=== PATIENT | male | born 1950 | race Caucasian/White ===

== ENCOUNTER 2018-08-23 13:25 | Inpatient (IN) | payer MEDICAID, OTHER ==
[~2018-08-23] VITALS: Ht 177.8 cm; Wt 64.0 kg
[~2018-08-23 13:25] MED LIST: BACTDSB PO; DOCU250C91 PO; GABA-531 PO; GABA-533 PO; MULT-1203 PO; PARO10TA71 PO; PARO10TA89 PO; QUET200T PO; QUET200T29 PO
[2018-08-23 15:19] LABS: GLUCOSE,POINT OF CARE 117 MG/DL (70-110)
[2018-08-23 15:39] LABS: BASOPHILS % (AUTO) 1.1 % (0.0-2.0); HEMATOCRIT 43.3 % (41-53); HEMOGLOBIN 14.4 g/dL (13.5-17.5); LYMPHOCYTES # (AUTO) 1.9 K/uL (1.0-4.8); LYMPHOCYTES % (AUTO) 37.3 % (22.0-44.0); MEAN CORPUSCULAR HEMOGLOBIN 32.6 pg (26.0-34.0); MEAN CORPUSCULAR HGB CONC 33.3 G/dL (31.0-37.0); MEAN CORPUSCULAR VOLUME 98 fL (80-100); MONOCYTES # (AUTO) 0.4 K/uL (0.1-1.0); NEUTROPHILS # (AUTO) 2.3 K/uL (1.8-7.7); NEUTROPHILS % (AUTO) 43.6 % (40.0-70.0); PLATELET COUNT (AUTO) 370 K/uL (150-450); RED BLOOD CELL COUNT(AUTO) 4.43 MIL/uL (4.50-5.90); RED CELL DISTRIBUTION WIDTH 14.7 % (11.5-14.5)
[2018-08-23] MEDS ORDERED: HALOPERIDOL 5 MG TABLET PO ONE (15:45)
[2018-08-23 15:52] LABS: ANION GAP 8 mmol/L (8-16); CALCIUM, TOTAL 8.8 mg/dL (8.8-10.5); CARBON DIOXIDE 31 mmol/L (22-29); CHLORIDE 104 mmol/L (98-107); GLOMERULAR FILTR. RATE CALC > 60 mL/min (>60); GLUCOSE,RANDOM 118 mg/dL (70-110); POTASSIUM 4.5 mmol/L (3.5-5.1); SODIUM SERUM 143 mmol/L (136-145); UREA NITROGEN, BLOOD 14 mg/dL (7-18)
[2018-08-23 15:58] LABS: ALANINE AMINOTRANSFERASE 23 U/L (12-78); ALBUMIN 3.8 g/dL (3.4-5.0); ALKALINE PHOSPHATASE 111 U/L (46-116); ASPARTATE AMINOTRANSFERASE 18 U/L (15-37); BILIRUBIN,TOTAL 0.2 mg/dL (0.1-1.0); TOTAL PROTEIN, SERUM 8.2 g/dL (6.4-8.2)
[2018-08-23] MEDS ORDERED: ZOLPIDEM TARTRATE 10 MG TABLET PO PRN (16:15)
[2018-08-23 16:47] LABS: AMPHET/METH SCREEN,URINE NEGATIVE (NEGATIVE); BARBITURATE SCREEN, URINE NEGATIVE (NEGATIVE); BENZODIAZEPINES SCREEN,URINE NEGATIVE (NEGATIVE); CANNABINOID SCREEN,URINE POSITIVE (NEGATIVE); COCAINE SCREEN,URINE NEGATIVE (NEGATIVE); METHADONE SCREEN, URINE NEGATIVE (NEGATIVE); OPIATE SCREEN,URINE NEGATIVE (NEGATIVE); PHENCYCLIDINE SCREEN,URINE NEGATIVE (NEGATIVE)
[2018-08-23] MEDS: LORazepam 2 MG TABLET PO PRN (18:53)
[2018-08-23] MEDS ORDERED: LORazepam 2 MG TABLET PO ONE (19:00)
[2018-08-24 00:03] VITALS: BP 131/84
[2018-08-24] MEDS: LORazepam 2 MG TABLET PO PRN ×3 (00:20→14:14)
[2018-08-24] MEDS ORDERED: PNEUMOCOCCAL VACCINE POLYVALENT 0.5 ML VIAL [PPSV23] IM ONE (03:45)
[2018-08-24 08:05] VITALS: BP 140/95
[2018-08-24] MEDS: HALOPERIDOL 5 MG TABLET PO PRN ×2 (09:08→14:14)
[2018-08-24] MEDS: GABAPENTIN 400 MG CAPSULE PO SCH ×3 (13:13→20:30)
[2018-08-24 17:59] VITALS: BP 119/76
[2018-08-24] MEDS: QUEtiapine FUMARATE 200 MG TABLET PO SCH (20:29)
[2018-08-24] MEDS: PARoxetine HCL 10 MG TABLET PO SCH (20:30)
[2018-08-25 00:10] VITALS: BP 89/52
[2018-08-25 00:15] VITALS: BP 89/52
[2018-08-25 00:25] VITALS: BP 106/56
[2018-08-25 10:16] VITALS: BP 118/78
[2018-08-25] MEDS: GABAPENTIN 400 MG CAPSULE PO SCH ×4 (10:35→20:31)
[2018-08-25] MEDS: QUEtiapine FUMARATE 200 MG TABLET PO SCH (20:31)
[2018-08-25] MEDS: PARoxetine HCL 10 MG TABLET PO SCH (20:31)
[2018-08-25 21:38] VITALS: BP 121/79
== END 2018-08-25 22:50 | disposition home or self-care (01) | DRG 753 ==
LOC: EMS 13:25 → 3EI 19:00
PROVIDERS: ADMIT Psychiatry & Neurology Psychiatry; ATTEND Psychiatry & Neurology Psychiatry
DX: F31.9 Bipolar disorder, unspecified (principal); R45.851 Suicidal ideations; F22 Delusional disorders; Y90.8 Blood alcohol level of 240 mg/100 ml or more; F12.90 Cannabis use, unspecified, uncomplicated; F10.129 Alcohol abuse with intoxication, unspecified; E11.9 Type 2 diabetes mellitus without complications; Z79.899 Other long term (current) drug therapy
CPT/HCPCS: 70450; 83036; G0480

== ENCOUNTER 2020-01-10 22:57 | Emergency (ER) | payer MEDICAID ==
[~2020-01-10] VITALS: Ht 165.1 cm; Wt 6.4 kg
[~2020-01-10 22:57] MED LIST changes: -BACTDSB PO; -DOCU250C91 PO; -GABA-533 PO; -MULT-1203 PO; -PARO10TA71 PO; -QUET200T29 PO
[2020-01-10] MEDS ORDERED: PROZ10 PO (23:06)
[2020-01-10 23:28] LABS: BASOPHILS % (AUTO) 0.9 % (0.0-2.0); EOSINOPHILS % (AUTO) 5.8 % (1.0-6.0); HEMATOCRIT 36.8 % (41-53); HEMOGLOBIN 12.5 g/dL (13.5-17.5); LYMPHOCYTES # (AUTO) 1.7 K/uL (1.0-4.8); LYMPHOCYTES % (AUTO) 33.3 % (22.0-44.0); MEAN CORPUSCULAR HEMOGLOBIN 33.1 pg (26.0-34.0); MEAN CORPUSCULAR VOLUME 97 fL (80-100); MONOCYTES # (AUTO) 0.7 K/uL (0.1-1.0); MONOCYTES % (AUTO) 13.4 % (2.0-9.0); NEUTROPHILS # (AUTO) 2.4 K/uL (1.8-7.7); NEUTROPHILS % (AUTO) 46.6 % (40.0-70.0); PLATELET COUNT (AUTO) 309 K/uL (150-450); RED BLOOD CELL COUNT(AUTO) 3.78 MIL/uL (4.50-5.90); RED CELL DISTRIBUTION WIDTH 15.7 % (11.5-14.5)
[2020-01-10 23:36] LABS: ANION GAP 9 mmol/L (8-16); CALCIUM, TOTAL 8.5 mg/dL (8.8-10.5); CARBON DIOXIDE 29 mmol/L (22-29); CHLORIDE 104 mmol/L (98-107); CREATININE 0.85 mg/dL (0.60-1.30); GLOMERULAR FILTR. RATE CALC > 60 mL/min (>60); GLUCOSE,RANDOM 155 mg/dL (70-110); SODIUM SERUM 142 mmol/L (136-145); UREA NITROGEN, BLOOD 9 mg/dL (7-18)
[2020-01-10 23:42] LABS: ALANINE AMINOTRANSFERASE 28 U/L (12-78); ALBUMIN 3.1 g/dL (3.4-5.0); ALKALINE PHOSPHATASE 90 U/L (46-116); ASPARTATE AMINOTRANSFERASE 27 U/L (15-37); BILIRUBIN,TOTAL 0.3 mg/dL (0.1-1.0); TOTAL PROTEIN, SERUM 6.7 g/dL (6.4-8.2)
[2020-01-11 03:13] LABS: AMPHET/METH SCREEN,URINE NEGATIVE (NEGATIVE); BARBITURATE SCREEN, URINE POSITIVE (NEGATIVE); BENZODIAZEPINES SCREEN,URINE POSITIVE (NEGATIVE); CANNABINOID SCREEN,URINE POSITIVE (NEGATIVE); COCAINE SCREEN,URINE NEGATIVE (NEGATIVE); METHADONE SCREEN, URINE NEGATIVE (NEGATIVE); OPIATE SCREEN,URINE NEGATIVE (NEGATIVE)
[2020-01-11 03:22] LABS: PHENCYCLIDINE SCREEN,URINE NEGATIVE (NEGATIVE)
[2020-01-11 04:30] VITALS: BP 112/81
== END 2020-01-11 05:10 | disposition home or self-care (01) ==
LOC: EMS 22:57
DX: S00.11XA Contusion of right eyelid and periocular area, initial encounter (principal); F31.9 Bipolar disorder, unspecified; F10.129 Alcohol abuse with intoxication, unspecified; F19.10 Other psychoactive substance abuse, uncomplicated; R06.02 Shortness of breath; R07.9 Chest pain, unspecified; F41.9 Anxiety disorder, unspecified; E11.9 Type 2 diabetes mellitus without complications; Z86.73 Personal history of transient ischemic attack (TIA), and cerebral infarction without residual deficits; W19.XXXA Unspecified fall, initial encounter; Y93.89 Activity, other specified; Y92.89 Other specified places as the place of occurrence of the external cause; Y99.8 Other external cause status; Y90.6 Blood alcohol level of 120-199 mg/100 ml
CPT/HCPCS: 36415; 70450; 71045; 72125; 80053; 80307; 82962; 84484; 85025; 93005; 99285; G0480

== ENCOUNTER 2020-01-26 05:45 | Emergency (ER) | payer MEDICAID ==
[~2020-01-26] VITALS: Ht 165.1 cm; Wt 72.7 kg
[~2020-01-26 05:45] MED LIST changes: -GABA-531 PO; -PARO10TA89 PO; +PROZ10 PO; -QUET200T PO
[2020-01-26] MEDS ORDERED: METF-960 PO (05:59)
[2020-01-26 06:16] LABS: BASOPHILS % (AUTO) 0.9 % (0.0-2.0); EOSINOPHILS % (AUTO) 2.3 % (1.0-6.0); HEMATOCRIT 39.8 % (41-53); HEMOGLOBIN 13.3 g/dL (13.5-17.5); LYMPHOCYTES # (AUTO) 1.2 K/uL (1.0-4.8); MEAN CORPUSCULAR HEMOGLOBIN 32.7 pg (26.0-34.0); MEAN CORPUSCULAR HGB CONC 33.4 G/dL (31.0-37.0); MEAN CORPUSCULAR VOLUME 98 fL (80-100); MONOCYTES # (AUTO) 1.1 K/uL (0.1-1.0); MONOCYTES % (AUTO) 12.8 % (2.0-9.0); NEUTROPHILS # (AUTO) 6.4 K/uL (1.8-7.7); PLATELET COUNT (AUTO) 367 K/uL (150-450); RED BLOOD CELL COUNT(AUTO) 4.07 MIL/uL (4.50-5.90); RED CELL DISTRIBUTION WIDTH 15.6 % (11.5-14.5)
[2020-01-26 06:28] LABS: ANION GAP 9 mmol/L (8-16); CALCIUM, TOTAL 8.8 mg/dL (8.8-10.5); CARBON DIOXIDE 26 mmol/L (22-29); CHLORIDE 100 mmol/L (98-107); CREATININE 0.78 mg/dL (0.60-1.30); GLOMERULAR FILTR. RATE CALC > 60 mL/min (>60); GLUCOSE,RANDOM 151 mg/dL (70-110); POTASSIUM 3.7 mmol/L (3.5-5.1); SODIUM SERUM 135 mmol/L (136-145); UREA NITROGEN, BLOOD 8 mg/dL (7-18)
[2020-01-26 06:34] LABS: ALANINE AMINOTRANSFERASE 23 U/L (12-78); ALBUMIN 3.7 g/dL (3.4-5.0); ALKALINE PHOSPHATASE 147 U/L (46-116); ASPARTATE AMINOTRANSFERASE 22 U/L (15-37); BILIRUBIN,TOTAL 0.2 mg/dL (0.1-1.0); TOTAL PROTEIN, SERUM 7.9 g/dL (6.4-8.2)
[2020-01-26 08:44] LABS: AMPHET/METH SCREEN,URINE NEGATIVE (NEGATIVE); BARBITURATE SCREEN, URINE POSITIVE (NEGATIVE); BENZODIAZEPINES SCREEN,URINE POSITIVE (NEGATIVE); CANNABINOID SCREEN,URINE POSITIVE (NEGATIVE); COCAINE SCREEN,URINE NEGATIVE (NEGATIVE); METHADONE SCREEN, URINE NEGATIVE (NEGATIVE); OPIATE SCREEN,URINE NEGATIVE (NEGATIVE)
[2020-01-26 08:52] LABS: PHENCYCLIDINE SCREEN,URINE NEGATIVE (NEGATIVE)
[2020-01-26 09:00] VITALS: BP 125/86
== END 2020-01-26 09:23 | disposition home or self-care (01) ==
LOC: EMS 05:45
DX: S61.512A Laceration without foreign body of left wrist, initial encounter (principal); S61.511A Laceration without foreign body of right wrist, initial encounter; R45.851 Suicidal ideations; F10.10 Alcohol abuse, uncomplicated; F41.9 Anxiety disorder, unspecified; E11.9 Type 2 diabetes mellitus without complications; F12.90 Cannabis use, unspecified, uncomplicated; Z86.73 Personal history of transient ischemic attack (TIA), and cerebral infarction without residual deficits; Z90.89 Acquired absence of other organs; Z59.0 Homelessness; Z79.84 Long term (current) use of oral hypoglycemic drugs; X78.0XXA Intentional self-harm by sharp glass, initial encounter; Y93.89 Activity, other specified; Y92.89 Other specified places as the place of occurrence of the external cause; Y99.8 Other external cause status; Y90.8 Blood alcohol level of 240 mg/100 ml or more
CPT/HCPCS: 36415; 80053; 80307; 85025; 99285; G0480

== ENCOUNTER 2020-02-04 09:32 | Inpatient (IN) | payer MEDICAID ==
[~2020-02-04] VITALS: Ht 165.1 cm; Wt 72.5 kg
[~2020-02-04 09:32] MED LIST changes: +METF-960 PO
[2020-02-04 10:40] LABS: EOSINOPHILS % (AUTO) 5.2 % (1.0-6.0); HEMATOCRIT 41.8 % (41-53); HEMOGLOBIN 13.8 g/dL (13.5-17.5); LYMPHOCYTES # (AUTO) 1.4 K/uL (1.0-4.8); LYMPHOCYTES % (AUTO) 23.9 % (22.0-44.0); MEAN CORPUSCULAR HEMOGLOBIN 32.6 pg (26.0-34.0); MEAN CORPUSCULAR VOLUME 99 fL (80-100); MONOCYTES # (AUTO) 0.5 K/uL (0.1-1.0); MONOCYTES % (AUTO) 9.4 % (2.0-9.0); NEUTROPHILS # (AUTO) 3.5 K/uL (1.8-7.7); NEUTROPHILS % (AUTO) 60.5 % (40.0-70.0); PLATELET COUNT (AUTO) 270 K/uL (150-450); RED BLOOD CELL COUNT(AUTO) 4.24 MIL/uL (4.50-5.90)
[2020-02-04 10:51] LABS: ANION GAP 11 mmol/L (8-16); CALCIUM, TOTAL 9.2 mg/dL (8.8-10.5); CARBON DIOXIDE 22 mmol/L (22-29); CHLORIDE 105 mmol/L (98-107); CREATININE 0.63 mg/dL (0.60-1.30); GLOMERULAR FILTR. RATE CALC > 60 mL/min (>60); GLUCOSE,RANDOM 130 mg/dL (70-110); POTASSIUM 3.8 mmol/L (3.5-5.1); SODIUM SERUM 138 mmol/L (136-145); UREA NITROGEN, BLOOD 14 mg/dL (7-18)
[2020-02-04 10:57] LABS: ALANINE AMINOTRANSFERASE 20 U/L (12-78); ALBUMIN 3.5 g/dL (3.4-5.0); ALKALINE PHOSPHATASE 116 U/L (46-116); ASPARTATE AMINOTRANSFERASE 12 U/L (15-37); BILIRUBIN,TOTAL 0.1 mg/dL (0.1-1.0)
[2020-02-04] MEDS ORDERED: CEPHALEXIN MONOHYDRATE 500 MG CAPSULE PO ONE (14:30)
[2020-02-04] MEDS ORDERED: LORazepam 1 MG TABLET PO ONE (14:30)
[2020-02-04] MEDS ORDERED: DiphenhydrAMINE HCL 50 MG/ML VIAL IM ONE (14:30)
[2020-02-04] MEDS ORDERED: OLANZapine 5 MG RAPDIS TABLET PO PRN (14:45)
[2020-02-04] MEDS ORDERED: DIAZEPAM 10 MG TABLET PO PRN (14:45)
[2020-02-04] MEDS ORDERED: LOPERAMIDE HCL 2 MG CAPSULE PO PRN (14:45)
[2020-02-04] MEDS ORDERED: HydrOXYzine PAMOATE 50 MG CAPSULE PO PRN (14:45)
[2020-02-04] MEDS ORDERED: CYANOCOBALAMIN 1,000 MCG/ML VIAL IM ONE (14:45)
[2020-02-04] MEDS ORDERED: TUBERCULIN, PURIFIED PROTEIN DERIVATIVE 5 TU/0.1 ML SYRINGE ID ONE (14:45)
[2020-02-04] MEDS ORDERED: PROMETHAZINE HCL 25 MG TABLET PO PRN (14:45)
[2020-02-04] MEDS ORDERED: MAGNESIUM HYDROXIDE SUSPENSION 30 ML UDCUP PO PRN (14:45)
[2020-02-04] MEDS ORDERED: ACETAMINOPHEN 325 MG TABLET PO PRN (14:45)
[2020-02-04] MEDS ORDERED: GuaiFENesin/D-METHORPHAN [SUGAR-FREE] 200-20MG/10 ML SYRUP UDCUP PO PRN (14:45)
[2020-02-04] MEDS ORDERED: MAG HYDROX/AL HYDROX/SIMETH ES 30 ML SUSPENSION UDCUP PO PRN (14:45)
[2020-02-04 15:28] LABS: AMPHET/METH SCREEN,URINE NEGATIVE (NEGATIVE); BARBITURATE SCREEN, URINE NEGATIVE (NEGATIVE); BENZODIAZEPINES SCREEN,URINE POSITIVE (NEGATIVE); CANNABINOID SCREEN,URINE NEGATIVE (NEGATIVE); COCAINE SCREEN,URINE NEGATIVE (NEGATIVE); METHADONE SCREEN, URINE NEGATIVE (NEGATIVE); OPIATE SCREEN,URINE NEGATIVE (NEGATIVE); PHENCYCLIDINE SCREEN,URINE NEGATIVE (NEGATIVE)
[2020-02-04 19:45] VITALS: BP 114/77
[2020-02-04 20:19] LABS: GLUCOMETER DEV NAME(LOC) BV2S.; GLUCOSE,POINT OF CARE 143 MG/DL (70-110)
[2020-02-04 20:45] VITALS: BP 108/77
[2020-02-04] MEDS: OLANZapine 5 MG RAPDIS TABLET PO SCH (21:15)
[2020-02-04] MEDS: THIAMINE 100 MG TABLET PO SCH (21:16)
[2020-02-04] MEDS: GABAPENTIN 400 MG CAPSULE PO SCH (21:16)
[2020-02-04] MEDS: ZOLPIDEM TARTRATE 10 MG TABLET PO PRN (21:28)
[2020-02-04 21:45] VITALS: BP 109/72
[2020-02-04] MEDS ORDERED: DEXTROSE 50%-WATER 25 GM/50 ML SYRINGE IVP PRN (22:45)
[2020-02-04] MEDS ORDERED: INSULIN LISPRO 100 UNITS/ML SQ PRN (22:45)
[2020-02-04] MEDS ORDERED: GLUCAGON,HUMAN RECOMBINANT 1 MG VIAL IM PRN (22:45)
[2020-02-04 22:58] VITALS: BP 100/60
[2020-02-05] VITALS (8 sets, daily range): BP systolic 99–140; BP diastolic 58–86
[2020-02-05] MEDS ORDERED: PNEUMOCOCCAL VACCINE POLYVALENT 0.5 ML VIAL [PPSV23] IM ONE (03:30)
[2020-02-05 05:38] LABS: GLUCOMETER DEV NAME(LOC) BV2S.; GLUCOSE,POINT OF CARE 113 MG/DL (70-110)
[2020-02-05] MEDS: MetFORMIN HCL 500 MG TABLET PO SCH (06:40)
[2020-02-05] MEDS ORDERED: DIAZEPAM 10 MG TABLET PO PRN (07:00)
[2020-02-05 08:54] LABS: CHOL/HDL RATIO 2.4 (4.2-7.3); FREE T4 (FREE THYROXINE) 0.99 ng/dL (0.76-1.46); HEMOGLOBIN A1C 6.2 % (3.8-5.6); THYROID STIMULATING HORMONE 1.87 uIU/mL (0.36-3.74)
[2020-02-05] MEDS: MULTIVITAMINS WITH MINERALS, THERAPEUTIC TABLET PO SCH (09:44)
[2020-02-05] MEDS: FLUoxetine HCL 10 MG CAPSULE PO SCH (09:44)
[2020-02-05] MEDS: THIAMINE 100 MG TABLET PO SCH ×2 (09:45→16:03)
[2020-02-05] MEDS: DIAZEPAM 10 MG TABLET PO SCH ×4 (09:45→19:46)
[2020-02-05] MEDS: GABAPENTIN 400 MG CAPSULE PO SCH ×4 (09:45→19:46)
[2020-02-05] MEDS: NALTREXONE HCL 50 MG TABLET PO SCH (09:45)
[2020-02-05] MEDS: FOLIC ACID 1 MG TABLET PO SCH (09:45)
[2020-02-05 11:21] LABS: GLUCOMETER DEV NAME(LOC) BV2S.; GLUCOSE,POINT OF CARE 104 MG/DL (70-110)
[2020-02-05] MEDS: INSULIN LISPRO 100 UNITS/ML SQ PRN ×2 (16:00→20:49)
[2020-02-05 16:34] LABS: GLUCOMETER DEV NAME(LOC) BV2S.; GLUCOSE,POINT OF CARE 166 MG/DL (70-110)
[2020-02-05] MEDS: OLANZapine 5 MG RAPDIS TABLET PO SCH (19:46)
[2020-02-05 20:17] LABS: GLUCOMETER DEV NAME(LOC) BV2S.; GLUCOSE,POINT OF CARE 143 MG/DL (70-110)
[2020-02-05] MEDS: ZOLPIDEM TARTRATE 10 MG TABLET PO PRN (21:51)
[2020-02-06] VITALS (8 sets, daily range): BP systolic 102–127; BP diastolic 63–85
[2020-02-06 05:59] LABS: GLUCOMETER DEV NAME(LOC) BV2S.; GLUCOSE,POINT OF CARE 123 MG/DL (70-110)
[2020-02-06] MEDS: MetFORMIN HCL 500 MG TABLET PO SCH (07:02)
[2020-02-06] MEDS: MULTIVITAMINS WITH MINERALS, THERAPEUTIC TABLET PO SCH (08:44)
[2020-02-06] MEDS: NALTREXONE HCL 50 MG TABLET PO SCH (08:44)
[2020-02-06] MEDS: OMEGA-3/DHA/EPA/FISH OIL 1,000 MG CAPSULE PO SCH (08:44)
[2020-02-06] MEDS: GABAPENTIN 300 MG CAPSULE PO SCH ×2 (08:45→12:53)
[2020-02-06] MEDS: DIAZEPAM 10 MG TABLET PO SCH ×4 (08:45→20:06)
[2020-02-06] MEDS: FOLIC ACID 1 MG TABLET PO SCH (08:45)
[2020-02-06] MEDS: FLUoxetine HCL 10 MG CAPSULE PO SCH (08:45)
[2020-02-06] MEDS: THIAMINE 100 MG TABLET PO SCH ×2 (08:45→16:55)
[2020-02-06] MEDS: GABAPENTIN 400 MG CAPSULE PO SCH ×2 (16:55→20:06)
[2020-02-06] MEDS: ACAMPROSATE CALCIUM 333 MG DR TABLET PO SCH (16:55)
[2020-02-06] MEDS: TOPIRAMATE 25 MG TABLET PO SCH ×2 (16:55→20:06)
[2020-02-06 17:14] LABS: GLUCOMETER DEV NAME(LOC) BV2S.; GLUCOSE,POINT OF CARE 108 MG/DL (70-110)
[2020-02-06] MEDS: OLANZapine 5 MG RAPDIS TABLET PO SCH (20:06)
[2020-02-06] MEDS: ZOLPIDEM TARTRATE 10 MG TABLET PO PRN (22:21)
[2020-02-07] VITALS (7 sets, daily range): BP systolic 110–135; BP diastolic 67–87
[2020-02-07 06:12] LABS: GLUCOMETER DEV NAME(LOC) BV2S.; GLUCOSE,POINT OF CARE 129 MG/DL (70-110)
[2020-02-07] MEDS: MetFORMIN HCL 500 MG TABLET PO SCH (06:16)
[2020-02-07] MEDS ORDERED: DIAZEPAM 5 MG TABLET PO PRN (07:00)
[2020-02-07] MEDS ORDERED: PARoxetine HCL 10 MG TABLET PO SCH (09:00)
[2020-02-07] MEDS: MULTIVITAMINS WITH MINERALS, THERAPEUTIC TABLET PO SCH (09:07)
[2020-02-07] MEDS: THIAMINE 100 MG TABLET PO SCH ×2 (09:07→16:31)
[2020-02-07] MEDS: GABAPENTIN 400 MG CAPSULE PO SCH ×4 (09:07→20:03)
[2020-02-07] MEDS: OMEGA-3/DHA/EPA/FISH OIL 1,000 MG CAPSULE PO SCH (09:07)
[2020-02-07] MEDS: FOLIC ACID 1 MG TABLET PO SCH (09:07)
[2020-02-07] MEDS: DIAZEPAM 5 MG TABLET PO SCH ×4 (09:07→20:03)
[2020-02-07] MEDS: ACAMPROSATE CALCIUM 333 MG DR TABLET PO SCH ×3 (09:07→16:31)
[2020-02-07] MEDS: TOPIRAMATE 25 MG TABLET PO SCH ×4 (09:07→20:03)
[2020-02-07] MEDS: NALTREXONE HCL 50 MG TABLET PO SCH (09:07)
[2020-02-07] MEDS: INSULIN LISPRO 100 UNITS/ML SQ PRN (11:01)
[2020-02-07 12:44] LABS: GLUCOMETER DEV NAME(LOC) BV2S.; GLUCOSE,POINT OF CARE 150 MG/DL (70-110)
[2020-02-07] MEDS ORDERED: LOPERAMIDE HCL 2 MG CAPSULE PO PRN (14:45)
[2020-02-07 16:52] LABS: GLUCOMETER DEV NAME(LOC) BV2S.; GLUCOSE,POINT OF CARE 136 MG/DL (70-110)
[2020-02-07] MEDS ORDERED: OLANZapine 10 MG RAPDIS TABLET PO SCH (21:00)
[2020-02-07] MEDS ORDERED: ACAM333T7 PO (21:23)
[2020-02-07] MEDS ORDERED: PARO-37 PO (21:24)
[2020-02-07] MEDS ORDERED: OLAN10TA22 PO (21:24)
[2020-02-07] MEDS ORDERED: OMEG-135 PO (21:24)
[2020-02-07] MEDS ORDERED: NALT50TA PO (21:24)
[2020-02-07] MEDS ORDERED: GABA-1201 PO (21:24)
[2020-02-07] MEDS ORDERED: TOPI25 PO (21:24)
[2020-02-07 21:29] LABS: GLUCOMETER DEV NAME(LOC) BV2S.; GLUCOSE,POINT OF CARE 118 MG/DL (70-110)
[2020-02-08 00:52] VITALS: BP 116/60
[2020-02-08 04:26] VITALS: BP 116/60
[2020-02-08] MEDS ORDERED: DIAZEPAM 5 MG TABLET PO PRN (07:00)
[2020-02-08] MEDS: MetFORMIN HCL 500 MG TABLET PO SCH (07:01)
[2020-02-08 07:08] LABS: GLUCOMETER DEV NAME(LOC) BV2S.; GLUCOSE,POINT OF CARE 114 MG/DL (70-110)
[2020-02-08] MEDS: MULTIVITAMINS WITH MINERALS, THERAPEUTIC TABLET PO SCH (08:32)
[2020-02-08] MEDS: OMEGA-3/DHA/EPA/FISH OIL 1,000 MG CAPSULE PO SCH (08:32)
[2020-02-08] MEDS: TOPIRAMATE 25 MG TABLET PO SCH ×2 (08:32→12:49)
[2020-02-08] MEDS: GABAPENTIN 400 MG CAPSULE PO SCH ×2 (08:32→12:49)
[2020-02-08] MEDS: FOLIC ACID 1 MG TABLET PO SCH (08:32)
[2020-02-08] MEDS: ACAMPROSATE CALCIUM 333 MG DR TABLET PO SCH ×2 (08:32→12:49)
[2020-02-08] MEDS: THIAMINE 100 MG TABLET PO SCH (08:32)
[2020-02-08] MEDS: NALTREXONE HCL 50 MG TABLET PO SCH (08:32)
[2020-02-08] MEDS ORDERED: METF-960 PO (08:38)
[2020-02-08] MEDS ORDERED: PARoxetine HCL 20 MG TABLET PO SCH (09:00)
[2020-02-08 10:39] VITALS: BP 121/84
== END 2020-02-08 14:00 | disposition home or self-care (01) | DRG 753 ==
LOC: EMS 09:33 → B2S 14:40 → UNDOADMIN 15:58 → B2S 20:12
PROVIDERS: ADMIT Psychiatry & Neurology Psychiatry; ATTEND Psychiatry & Neurology Psychiatry
DX: F31.30 Bipolar disorder, current episode depressed, mild or moderate severity, unspecified (principal); E11.9 Type 2 diabetes mellitus without complications; F12.90 Cannabis use, unspecified, uncomplicated; Z86.73 Personal history of transient ischemic attack (TIA), and cerebral infarction without residual deficits; Z20.828 Contact with and (suspected) exposure to other viral communicable diseases
CPT/HCPCS: 83036; 84439; 84443; 86592; 87426; G0480; J1200; J3420

== ENCOUNTER 2020-02-11 19:56 | Inpatient (IN) | payer MEDICAID ==
[~2020-02-11] VITALS: Ht 167.6 cm; Wt 76.4 kg
[~2020-02-11 19:56] MED LIST changes: +ACAM333T7 PO; +GABA-1201 PO; +NALT50TA PO; +OLAN10TA22 PO; +OMEG-135 PO; +PARO-37 PO; -PROZ10 PO; +TOPI25 PO
[2020-02-11 22:09] LABS: BASOPHILS % (AUTO) 0.7 % (0.0-2.0); EOSINOPHILS % (AUTO) 6.1 % (1.0-6.0); HEMATOCRIT 37.2 % (41-53); HEMOGLOBIN 12.4 g/dL (13.5-17.5); LYMPHOCYTES # (AUTO) 1.3 K/uL (1.0-4.8); LYMPHOCYTES % (AUTO) 18.6 % (22.0-44.0); MEAN CORPUSCULAR HEMOGLOBIN 32.6 pg (26.0-34.0); MEAN CORPUSCULAR HGB CONC 33.2 G/dL (31.0-37.0); MEAN CORPUSCULAR VOLUME 98 fL (80-100); MONOCYTES # (AUTO) 0.7 K/uL (0.1-1.0); MONOCYTES % (AUTO) 9.9 % (2.0-9.0); NEUTROPHILS # (AUTO) 4.6 K/uL (1.8-7.7); NEUTROPHILS % (AUTO) 64.7 % (40.0-70.0); PLATELET COUNT (AUTO) 282 K/uL (150-450); RED BLOOD CELL COUNT(AUTO) 3.79 MIL/uL (4.50-5.90); RED CELL DISTRIBUTION WIDTH 16.1 % (11.5-14.5)
[2020-02-11 22:32] LABS: ANION GAP 10 mmol/L (8-16); CALCIUM, TOTAL 8.2 mg/dL (8.8-10.5); CARBON DIOXIDE 25 mmol/L (22-29); CHLORIDE 107 mmol/L (98-107); CREATININE 0.72 mg/dL (0.60-1.30); GLOMERULAR FILTR. RATE CALC > 60 mL/min (>60); GLUCOSE,RANDOM 159 mg/dL (70-110); POTASSIUM 3.3 mmol/L (3.5-5.1); SODIUM SERUM 142 mmol/L (136-145); UREA NITROGEN, BLOOD 16 mg/dL (7-18)
[2020-02-11 22:36] LABS: ALANINE AMINOTRANSFERASE 33 U/L (12-78); ALBUMIN 2.9 g/dL (3.4-5.0); ALKALINE PHOSPHATASE 90 U/L (46-116); ASPARTATE AMINOTRANSFERASE 24 U/L (15-37); BILIRUBIN,TOTAL 0.1 mg/dL (0.1-1.0); TOTAL PROTEIN, SERUM 6.8 g/dL (6.4-8.2)
[2020-02-11] MEDS ORDERED: MAGNESIUM HYDROXIDE SUSPENSION 30 ML UDCUP PO PRN (22:45)
[2020-02-11] MEDS ORDERED: OLANZapine 5 MG RAPDIS TABLET PO PRN (22:45)
[2020-02-11] MEDS ORDERED: GuaiFENesin/D-METHORPHAN [SUGAR-FREE] 200-20MG/10 ML SYRUP UDCUP PO PRN (22:45)
[2020-02-11] MEDS ORDERED: PROMETHAZINE HCL 25 MG TABLET PO PRN (22:45)
[2020-02-11] MEDS ORDERED: HydrOXYzine PAMOATE 50 MG CAPSULE PO PRN (22:45)
[2020-02-11] MEDS ORDERED: MAG HYDROX/AL HYDROX/SIMETH ES 30 ML SUSPENSION UDCUP PO PRN (22:45)
[2020-02-11] MEDS ORDERED: DIAZEPAM 10 MG TABLET PO PRN (22:45)
[2020-02-11] MEDS ORDERED: LOPERAMIDE HCL 2 MG CAPSULE PO PRN ×2 (22:45)
[2020-02-11] MEDS ORDERED: ACETAMINOPHEN 325 MG TABLET PO PRN (22:45)
[2020-02-11 23:53] LABS: AMPHET/METH SCREEN,URINE NEGATIVE (NEGATIVE); BARBITURATE SCREEN, URINE NEGATIVE (NEGATIVE); BENZODIAZEPINES SCREEN,URINE POSITIVE (NEGATIVE); CANNABINOID SCREEN,URINE NEGATIVE (NEGATIVE); COCAINE SCREEN,URINE NEGATIVE (NEGATIVE); METHADONE SCREEN, URINE NEGATIVE (NEGATIVE); OPIATE SCREEN,URINE NEGATIVE (NEGATIVE)
[2020-02-11 23:54] LABS: PHENCYCLIDINE SCREEN,URINE NEGATIVE (NEGATIVE)
[2020-02-12] VITALS (12 sets, daily range): BP systolic 107–142; BP diastolic 65–95
[2020-02-12 03:24] LABS: GLUCOMETER DEV NAME(LOC) BV3N.; GLUCOSE,POINT OF CARE 119 MG/DL (70-110)
[2020-02-12] MEDS: ZOLPIDEM TARTRATE 10 MG TABLET PO PRN ×2 (03:43→20:36)
[2020-02-12] MEDS ORDERED: PNEUMOCOCCAL VACCINE POLYVALENT 0.5 ML VIAL [PPSV23] IM ONE (04:45)
[2020-02-12] MEDS: ACAMPROSATE CALCIUM 333 MG DR TABLET PO SCH ×3 (08:20→16:36)
[2020-02-12] MEDS: NALTREXONE HCL 50 MG TABLET PO SCH (08:21)
[2020-02-12] MEDS: DIAZEPAM 10 MG TABLET PO SCH ×4 (08:21→20:35)
[2020-02-12] MEDS: MULTIVITAMINS WITH MINERALS, THERAPEUTIC TABLET PO SCH (08:21)
[2020-02-12] MEDS: FOLIC ACID 1 MG TABLET PO SCH (08:21)
[2020-02-12] MEDS: GABAPENTIN 300 MG CAPSULE PO SCH ×4 (08:21→20:38)
[2020-02-12] MEDS: OMEGA-3/DHA/EPA/FISH OIL 1,000 MG CAPSULE PO SCH (08:21)
[2020-02-12] MEDS: PARoxetine HCL 10 MG TABLET PO SCH (08:21)
[2020-02-12] MEDS: THIAMINE 100 MG TABLET PO SCH ×2 (08:21→16:37)
[2020-02-12] MEDS: TOPIRAMATE 25 MG TABLET PO SCH ×4 (08:22→20:36)
[2020-02-12] MEDS ORDERED: CYANOCOBALAMIN 1,000 MCG/ML VIAL IM ONE (09:00)
[2020-02-12] MEDS ORDERED: OLANZapine 5 MG RAPDIS TABLET PO SCH (21:00)
[2020-02-13] VITALS (7 sets, daily range): BP systolic 123–133; BP diastolic 64–98
[2020-02-13] MEDS: DIAZEPAM 10 MG TABLET PO PRN ×2 (03:17→18:08)
[2020-02-13] MEDS: OMEGA-3/DHA/EPA/FISH OIL 1,000 MG CAPSULE PO SCH (08:36)
[2020-02-13] MEDS: DIAZEPAM 10 MG TABLET PO SCH ×4 (08:36→20:41)
[2020-02-13] MEDS: THIAMINE 100 MG TABLET PO SCH ×2 (08:36→16:27)
[2020-02-13] MEDS: PARoxetine HCL 10 MG TABLET PO SCH (08:37)
[2020-02-13] MEDS: NALTREXONE HCL 50 MG TABLET PO SCH (08:37)
[2020-02-13] MEDS: FOLIC ACID 1 MG TABLET PO SCH (08:37)
[2020-02-13] MEDS: TOPIRAMATE 25 MG TABLET PO SCH ×4 (08:37→20:41)
[2020-02-13] MEDS: MULTIVITAMINS WITH MINERALS, THERAPEUTIC TABLET PO SCH (08:37)
[2020-02-13] MEDS: ACAMPROSATE CALCIUM 333 MG DR TABLET PO SCH ×3 (08:37→16:26)
[2020-02-13] MEDS: GABAPENTIN 300 MG CAPSULE PO SCH ×4 (08:37→20:41)
[2020-02-13] MEDS: ZOLPIDEM TARTRATE 10 MG TABLET PO PRN (20:41)
[2020-02-13] MEDS ORDERED: OLANZapine 10 MG RAPDIS TABLET PO SCH (21:00)
[2020-02-14 04:09] VITALS: BP 134/79
[2020-02-14 06:49] VITALS: BP 127/72
[2020-02-14] MEDS ORDERED: DIAZEPAM 5 MG TABLET PO PRN (07:00)
[2020-02-14] MEDS: DIAZEPAM 5 MG TABLET PO SCH ×3 (08:39→17:00)
[2020-02-14] MEDS: OMEGA-3/DHA/EPA/FISH OIL 1,000 MG CAPSULE PO SCH (08:39)
[2020-02-14] MEDS: MULTIVITAMINS WITH MINERALS, THERAPEUTIC TABLET PO SCH (08:39)
[2020-02-14] MEDS: ACAMPROSATE CALCIUM 333 MG DR TABLET PO SCH ×3 (08:40→17:00)
[2020-02-14] MEDS: GABAPENTIN 300 MG CAPSULE PO SCH ×3 (08:40→17:00)
[2020-02-14] MEDS: NALTREXONE HCL 50 MG TABLET PO SCH (08:40)
[2020-02-14] MEDS: FOLIC ACID 1 MG TABLET PO SCH (08:40)
[2020-02-14] MEDS: TOPIRAMATE 25 MG TABLET PO SCH ×3 (08:40→17:00)
[2020-02-14] MEDS: THIAMINE 100 MG TABLET PO SCH ×2 (08:40→17:00)
[2020-02-14] MEDS: PARoxetine HCL 10 MG TABLET PO SCH (08:41)
[2020-02-14 08:50] VITALS: BP 121/87
[2020-02-14] MEDS ORDERED: ACAM333T7 PO (14:02)
[2020-02-14] MEDS ORDERED: NALT50TA PO (14:02)
[2020-02-14 16:02] VITALS: BP 111/78
[2020-02-15] MEDS ORDERED: DIAZEPAM 5 MG TABLET PO PRN (07:00)
== END 2020-02-14 19:10 | disposition home or self-care (01) | DRG 750 ==
LOC: EMS 19:57 → B3A 22:35
PROVIDERS: ADMIT Psychiatry & Neurology Psychiatry; ATTEND Psychiatry & Neurology Psychiatry
DX: F25.9 Schizoaffective disorder, unspecified (principal); G40.409 Other generalized epilepsy and epileptic syndromes, not intractable, without status epilepticus; F12.90 Cannabis use, unspecified, uncomplicated; J44.9 Chronic obstructive pulmonary disease, unspecified; N40.0 Benign prostatic hyperplasia without lower urinary tract symptoms; E11.9 Type 2 diabetes mellitus without complications; Z59.0 Homelessness; D64.9 Anemia, unspecified; Z79.84 Long term (current) use of oral hypoglycemic drugs; Z20.828 Contact with and (suspected) exposure to other viral communicable diseases
CPT/HCPCS: 87081; 87426; 90732; G0480; J3420

== ENCOUNTER 2020-02-22 22:45 | Inpatient (IN) | payer MEDICAID ==
[~2020-02-22] VITALS: Ht 165.1 cm; Wt 76.5 kg
[~2020-02-22 22:45] MED LIST changes: -GABA-1201 PO; -METF-960 PO; -OLAN10TA22 PO; -OMEG-135 PO; -PARO-37 PO; -TOPI25 PO
[2020-02-22 23:18] LABS: EOSINOPHILS % (AUTO) 13.9 % (1.0-6.0); HEMATOCRIT 36.3 % (41-53); HEMOGLOBIN 12.2 g/dL (13.5-17.5); LYMPHOCYTES # (AUTO) 1.7 K/uL (1.0-4.8); LYMPHOCYTES % (AUTO) 30.9 % (22.0-44.0); MEAN CORPUSCULAR HEMOGLOBIN 33.1 pg (26.0-34.0); MEAN CORPUSCULAR HGB CONC 33.5 G/dL (31.0-37.0); MEAN CORPUSCULAR VOLUME 99 fL (80-100); MONOCYTES # (AUTO) 0.6 K/uL (0.1-1.0); MONOCYTES % (AUTO) 10.5 % (2.0-9.0); NEUTROPHILS # (AUTO) 2.4 K/uL (1.8-7.7); NEUTROPHILS % (AUTO) 43.7 % (40.0-70.0); PLATELET COUNT (AUTO) 281 K/uL (150-450); RED BLOOD CELL COUNT(AUTO) 3.68 MIL/uL (4.50-5.90); RED CELL DISTRIBUTION WIDTH 15.6 % (11.5-14.5)
[2020-02-22 23:28] LABS: ANION GAP 12 mmol/L (8-16); CARBON DIOXIDE 24 mmol/L (22-29); CHLORIDE 106 mmol/L (98-107); GLOMERULAR FILTR. RATE CALC > 60 mL/min (>60); GLUCOSE,RANDOM 124 mg/dL (70-110); POTASSIUM 3.3 mmol/L (3.5-5.1); SODIUM SERUM 142 mmol/L (136-145); UREA NITROGEN, BLOOD 14 mg/dL (7-18)
[2020-02-22 23:34] LABS: ALANINE AMINOTRANSFERASE 17 U/L (12-78); ALBUMIN 2.9 g/dL (3.4-5.0); ALKALINE PHOSPHATASE 94 U/L (46-116); ASPARTATE AMINOTRANSFERASE 14 U/L (15-37); BILIRUBIN,TOTAL 0.2 mg/dL (0.1-1.0); TOTAL PROTEIN, SERUM 6.1 g/dL (6.4-8.2)
[2020-02-23] VITALS (8 sets, daily range): BP systolic 124–132; BP diastolic 79–94
[2020-02-23] MEDS ORDERED: LORazepam 2 MG TABLET PO PRN (00:30)
[2020-02-23] MEDS ORDERED: QUEtiapine FUMARATE 100 MG TABLET PO PRN (00:30)
[2020-02-23 01:23] LABS: APPEARANCE,URINE CLEAR (CLEAR); BILIRUBIN,URINE NEGATIVE (NEGATIVE); GLUCOSE, URINE (UA) NEGATIVE (NEGATIVE); KETONES,URINE NEGATIVE (NEGATIVE); LEUKOCYTE ESTERASE ,URINE NEGATIVE (NEGATIVE); NITRATE,URINE NEGATIVE (NEGATIVE); OCCULT BLOOD,URINE NEGATIVE (NEGATIVE); PROTEIN,URINE NEGATIVE (NEGATIVE); UROBILINOGEN,URINE 0.2 mg/dL (<=1.0)
[2020-02-23 01:24] LABS: AMPHET/METH SCREEN,URINE NEGATIVE (NEGATIVE); BARBITURATE SCREEN, URINE POSITIVE (NEGATIVE); BENZODIAZEPINES SCREEN,URINE POSITIVE (NEGATIVE); CANNABINOID SCREEN,URINE NEGATIVE (NEGATIVE); COCAINE SCREEN,URINE NEGATIVE (NEGATIVE); METHADONE SCREEN, URINE NEGATIVE (NEGATIVE); OPIATE SCREEN,URINE NEGATIVE (NEGATIVE)
[2020-02-23 01:26] LABS: PHENCYCLIDINE SCREEN,URINE NEGATIVE (NEGATIVE)
[2020-02-23 02:54] LABS: COVID AG,FIA SOURCE NASOPHARYNGEAL
[2020-02-23] MEDS: LORazepam 1 MG TABLET PO PRN ×4 (02:59→14:47)
[2020-02-23] MEDS ORDERED: ZOLPIDEM TARTRATE 10 MG TABLET PO PRN (03:00)
[2020-02-23 10:44] LABS: GLUCOMETER DEV NAME(LOC) BV3N.; GLUCOSE,POINT OF CARE 118 MG/DL (70-110)
[2020-02-23] MEDS ORDERED: POTASSIUM CHLORIDE 20 MEQ ER TABLET PO ONE ×2 (12:00→17:00)
[2020-02-23] MEDS ORDERED: PNEUMOCOCCAL VACCINE POLYVALENT 0.5 ML VIAL [PPSV23] IM ONE (12:00)
[2020-02-23] MEDS ORDERED: ChlorproMAZINE HCL 100 MG TABLET PO PRN (16:30)
[2020-02-23] MEDS ORDERED: HydrOXYzine PAMOATE 50 MG CAPSULE PO PRN (16:30)
[2020-02-23] MEDS ORDERED: ZOLPIDEM TARTRATE 5 MG TABLET PO PRN (16:30)
[2020-02-23] MEDS: GABAPENTIN 300 MG CAPSULE PO SCH ×2 (17:27→20:51)
[2020-02-23] MEDS: LORazepam 0.5 MG TABLET PO PRN (19:08)
[2020-02-23] MEDS: OLANZapine 10 MG RAPDIS TABLET PO SCH (20:51)
[2020-02-24] VITALS (7 sets, daily range): BP systolic 116–130; BP diastolic 76–97
[2020-02-24] MEDS: LORazepam 0.5 MG TABLET PO PRN ×3 (01:46→16:19)
[2020-02-24 07:53] LABS: CHOL/HDL RATIO 2.4 (4.2-7.3)
[2020-02-24] MEDS: PARoxetine HCL 10 MG TABLET PO SCH (08:26)
[2020-02-24] MEDS: GABAPENTIN 300 MG CAPSULE PO SCH ×4 (08:26→20:56)
[2020-02-24] MEDS: OLANZapine 10 MG RAPDIS TABLET PO SCH (20:56)
[2020-02-25] MEDS: LORazepam 0.5 MG TABLET PO PRN (04:58)
[2020-02-25 05:00] VITALS: BP 116/84
[2020-02-25 08:00] VITALS: BP 122/89
[2020-02-25 08:18] VITALS: BP 122/89
[2020-02-25] MEDS: GABAPENTIN 300 MG CAPSULE PO SCH ×4 (08:20→20:35)
[2020-02-25] MEDS: PARoxetine HCL 10 MG TABLET PO SCH (08:20)
[2020-02-25] MEDS ORDERED: LOPERAMIDE HCL 2 MG CAPSULE PO PRN (14:45)
[2020-02-25] MEDS ORDERED: HydrOXYzine PAMOATE 50 MG CAPSULE PO PRN (14:45)
[2020-02-25] MEDS ORDERED: CYANOCOBALAMIN 1,000 MCG/ML VIAL IM ONE (14:45)
[2020-02-25] MEDS ORDERED: MAGNESIUM HYDROXIDE SUSPENSION 30 ML UDCUP PO PRN (14:45)
[2020-02-25] MEDS ORDERED: OLANZapine 5 MG RAPDIS TABLET PO PRN (14:45)
[2020-02-25] MEDS ORDERED: ACETAMINOPHEN 325 MG TABLET PO PRN (14:45)
[2020-02-25] MEDS ORDERED: MAG HYDROX/AL HYDROX/SIMETH ES 30 ML SUSPENSION UDCUP PO PRN (14:45)
[2020-02-25] MEDS ORDERED: GuaiFENesin/D-METHORPHAN [SUGAR-FREE] 200-20MG/10 ML SYRUP UDCUP PO PRN (14:45)
[2020-02-25] MEDS ORDERED: PROMETHAZINE HCL 25 MG TABLET PO PRN (14:45)
[2020-02-25] MEDS ORDERED: OLAN10TA22 PO (14:50)
[2020-02-25] MEDS ORDERED: NALT50TA PO (14:50)
[2020-02-25] MEDS ORDERED: PARO10TA71 PO (14:50)
[2020-02-25] MEDS ORDERED: ACAM333T7 PO (14:50)
[2020-02-25] MEDS ORDERED: GABA-1181 PO (14:50)
[2020-02-25 16:00] VITALS: BP 102/69
[2020-02-25 16:16] VITALS: BP 102/69
[2020-02-25] MEDS: ACAMPROSATE CALCIUM 333 MG DR TABLET PO SCH (16:32)
[2020-02-25] MEDS: THIAMINE 100 MG TABLET PO SCH (16:32)
[2020-02-25] MEDS: DIAZEPAM 10 MG TABLET PO PRN ×2 (16:33→20:35)
[2020-02-25] MEDS: OLANZapine 10 MG RAPDIS TABLET PO SCH (20:35)
[2020-02-26] MEDS: DIAZEPAM 10 MG TABLET PO PRN (00:17)
[2020-02-26 00:18] VITALS: BP 139/97
[2020-02-26 00:19] VITALS: BP 139/97
[2020-02-26] MEDS ORDERED: DIAZEPAM 10 MG TABLET PO PRN (07:00)
[2020-02-26 08:14] VITALS: BP 138/89
[2020-02-26] MEDS: GABAPENTIN 300 MG CAPSULE PO SCH (08:40)
[2020-02-26] MEDS: PARoxetine HCL 10 MG TABLET PO SCH (08:40)
[2020-02-26] MEDS: THIAMINE 100 MG TABLET PO SCH (08:40)
[2020-02-26] MEDS: ACAMPROSATE CALCIUM 333 MG DR TABLET PO SCH (08:40)
[2020-02-26] MEDS ORDERED: NALTREXONE HCL 50 MG TABLET PO SCH (09:00)
[2020-02-26] MEDS ORDERED: DIAZEPAM 10 MG TABLET PO SCH (09:00)
[2020-02-26] MEDS ORDERED: FOLIC ACID 1 MG TABLET PO SCH (09:00)
[2020-02-26] MEDS ORDERED: MULTIVITAMINS WITH MINERALS, THERAPEUTIC TABLET PO SCH (09:00)
[2020-02-28] MEDS ORDERED: DIAZEPAM 5 MG TABLET PO PRN (07:00)
[2020-02-28] MEDS ORDERED: DIAZEPAM 5 MG TABLET PO SCH (09:00)
[2020-02-28] MEDS ORDERED: LOPERAMIDE HCL 2 MG CAPSULE PO PRN (14:45)
[2020-02-29] MEDS ORDERED: DIAZEPAM 5 MG TABLET PO PRN (07:00)
== END 2020-02-26 14:28 | disposition home or self-care (01) | DRG 751 ==
LOC: EMS 22:49 → B3A 02-23 00:17 → UNDOADMIN 02-23 07:04 → B3A 02-23 09:18
PROVIDERS: ADMIT Psychiatry & Neurology Psychiatry; ATTEND Psychiatry & Neurology Psychiatry
DX: F33.9 Major depressive disorder, recurrent, unspecified (principal); E11.9 Type 2 diabetes mellitus without complications; E87.6 Hypokalemia; R45.851 Suicidal ideations; Z20.828 Contact with and (suspected) exposure to other viral communicable diseases; F12.90 Cannabis use, unspecified, uncomplicated; Z55.9 Problems related to education and literacy, unspecified; Z59.0 Homelessness; Z65.3 Problems related to other legal circumstances; Z86.73 Personal history of transient ischemic attack (TIA), and cerebral infarction without residual deficits; Z91.14 Patient's other noncompliance with medication regimen; Z91.19 Patient's noncompliance with other medical treatment and regimen; Z28.21 Immunization not carried out because of patient refusal; Z79.899 Other long term (current) drug therapy
CPT/HCPCS: 87081; 87426; 90732; G0480; J3420

== ENCOUNTER 2020-02-27 20:43 | Emergency (ER) | payer MEDICAID ==
[~2020-02-27] VITALS: Ht 152.4 cm; Wt 70.5 kg
[~2020-02-27 20:43] MED LIST changes: +GABA-1181 PO; +OLAN10TA22 PO; +PARO10TA71 PO
[2020-02-27 22:54] LABS: BASOPHILS % (AUTO) 1.5 % (0.0-2.0); EOSINOPHILS % (AUTO) 9.1 % (1.0-6.0); HEMATOCRIT 42.1 % (41-53); HEMOGLOBIN 13.9 g/dL (13.5-17.5); LYMPHOCYTES % (AUTO) 40.7 % (22.0-44.0); MEAN CORPUSCULAR HGB CONC 33.1 G/dL (31.0-37.0); MEAN CORPUSCULAR VOLUME 100 fL (80-100); MONOCYTES # (AUTO) 0.6 K/uL (0.1-1.0); MONOCYTES % (AUTO) 8.7 % (2.0-9.0); NEUTROPHILS # (AUTO) 2.9 K/uL (1.8-7.7); PLATELET COUNT (AUTO) 348 K/uL (150-450); RED BLOOD CELL COUNT(AUTO) 4.22 MIL/uL (4.50-5.90); RED CELL DISTRIBUTION WIDTH 16.2 % (11.5-14.5)
[2020-02-27 23:03] LABS: AMPHET/METH SCREEN,URINE NEGATIVE (NEGATIVE); BARBITURATE SCREEN, URINE NEGATIVE (NEGATIVE); BENZODIAZEPINES SCREEN,URINE POSITIVE (NEGATIVE); CANNABINOID SCREEN,URINE NEGATIVE (NEGATIVE); COCAINE SCREEN,URINE NEGATIVE (NEGATIVE); METHADONE SCREEN, URINE NEGATIVE (NEGATIVE); OPIATE SCREEN,URINE NEGATIVE (NEGATIVE); PHENCYCLIDINE SCREEN,URINE NEGATIVE (NEGATIVE)
[2020-02-27 23:05] LABS: ANION GAP 13 mmol/L (8-16); CALCIUM, TOTAL 8.7 mg/dL (8.8-10.5); CARBON DIOXIDE 26 mmol/L (22-29); CHLORIDE 105 mmol/L (98-107); CREATININE 1.04 mg/dL (0.60-1.30); GLOMERULAR FILTR. RATE CALC > 60 mL/min (>60); GLUCOSE,RANDOM 136 mg/dL (70-110); POTASSIUM 4.4 mmol/L (3.5-5.1); SODIUM SERUM 144 mmol/L (136-145); UREA NITROGEN, BLOOD 18 mg/dL (7-18)
[2020-02-27 23:11] LABS: ALANINE AMINOTRANSFERASE 19 U/L (12-78); ALBUMIN 3.7 g/dL (3.4-5.0); ALKALINE PHOSPHATASE 105 U/L (46-116); ASPARTATE AMINOTRANSFERASE 14 U/L (15-37); BILIRUBIN,TOTAL 0.2 mg/dL (0.1-1.0); TOTAL PROTEIN, SERUM 7.6 g/dL (6.4-8.2)
[2020-02-28 00:10] VITALS: BP 123/77
== END 2020-02-28 00:38 | disposition home or self-care (01) ==
LOC: EMS 20:43
DX: F32.9 Major depressive disorder, single episode, unspecified (principal); F10.129 Alcohol abuse with intoxication, unspecified; Y90.6 Blood alcohol level of 120-199 mg/100 ml
CPT/HCPCS: 36415; 80053; 80307; 85025; 99285; G0480

== ENCOUNTER 2020-04-05 16:08 | Inpatient (IN) | payer MEDICAID ==
[~2020-04-05] VITALS: Ht 172.7 cm; Wt 77.1 kg
[2020-04-05] MEDS ORDERED: METF-960 PO (16:33)
[2020-04-05 16:59] LABS: BASOPHILS % (AUTO) 0.9 % (0.0-2.0); EOSINOPHILS % (AUTO) 2.4 % (1.0-6.0); HEMOGLOBIN 14.3 g/dL (13.5-17.5); LYMPHOCYTES # (AUTO) 1.7 K/uL (1.0-4.8); LYMPHOCYTES % (AUTO) 26.6 % (22.0-44.0); MEAN CORPUSCULAR VOLUME 97 fL (80-100); MONOCYTES # (AUTO) 0.4 K/uL (0.1-1.0); MONOCYTES % (AUTO) 6.6 % (2.0-9.0); NEUTROPHILS # (AUTO) 4.1 K/uL (1.8-7.7); NEUTROPHILS % (AUTO) 63.5 % (40.0-70.0); PLATELET COUNT (AUTO) 268 K/uL (150-450); RED BLOOD CELL COUNT(AUTO) 4.32 MIL/uL (4.50-5.90); RED CELL DISTRIBUTION WIDTH 13.8 % (11.5-14.5)
[2020-04-05 17:24] LABS: ANION GAP 9 mmol/L (8-16); CALCIUM, TOTAL 8.5 mg/dL (8.8-10.5); CARBON DIOXIDE 24 mmol/L (22-29); CHLORIDE 103 mmol/L (98-107); CREATININE 0.73 mg/dL (0.60-1.30); GLOMERULAR FILTR. RATE CALC > 60 mL/min (>60); GLUCOSE,RANDOM 110 mg/dL (70-110); POTASSIUM 3.7 mmol/L (3.5-5.1); SODIUM SERUM 136 mmol/L (136-145); UREA NITROGEN, BLOOD 11 mg/dL (7-18)
[2020-04-05 17:30] LABS: ALANINE AMINOTRANSFERASE 17 U/L (12-78); ALBUMIN 3.6 g/dL (3.4-5.0); ALKALINE PHOSPHATASE 92 U/L (46-116); ASPARTATE AMINOTRANSFERASE 15 U/L (15-37); BILIRUBIN,TOTAL 0.3 mg/dL (0.1-1.0); TOTAL PROTEIN, SERUM 7.9 g/dL (6.4-8.2)
[2020-04-05 17:41] LABS: AMPHET/METH SCREEN,URINE NEGATIVE (NEGATIVE); BARBITURATE SCREEN, URINE NEGATIVE (NEGATIVE); BENZODIAZEPINES SCREEN,URINE NEGATIVE (NEGATIVE); CANNABINOID SCREEN,URINE NEGATIVE (NEGATIVE); COCAINE SCREEN,URINE NEGATIVE (NEGATIVE); METHADONE SCREEN, URINE NEGATIVE (NEGATIVE); OPIATE SCREEN,URINE NEGATIVE (NEGATIVE)
[2020-04-05 17:42] LABS: PHENCYCLIDINE SCREEN,URINE NEGATIVE (NEGATIVE)
[2020-04-05 20:55] LABS: APPEARANCE,URINE CLEAR (CLEAR); BILIRUBIN,URINE NEGATIVE (NEGATIVE); GLUCOSE, URINE (UA) NEGATIVE (NEGATIVE); KETONES,URINE NEGATIVE (NEGATIVE); LEUKOCYTE ESTERASE ,URINE NEGATIVE (NEGATIVE); NITRATE,URINE NEGATIVE (NEGATIVE); OCCULT BLOOD,URINE NEGATIVE (NEGATIVE); PROTEIN,URINE NEGATIVE (NEGATIVE); UROBILINOGEN,URINE 0.2 mg/dL (<=1.0)
[2020-04-05 21:31] LABS: COVID AG,FIA SOURCE NASOPHARYNGEAL
[2020-04-06] VITALS: BP 131/81
[2020-04-06] MEDS: LORazepam 2 MG TABLET PO PRN ×3 (00:58→10:36)
[2020-04-06] MEDS: ZOLPIDEM TARTRATE 10 MG TABLET PO PRN ×2 (00:58→22:07)
[2020-04-06] MEDS ORDERED: INFLUENZA VIRUS VACCINE QVS 2020-21 (6MO+)/PF 60 MCG/0.5 ML SYRINGE IM ONE (01:30)
[2020-04-06] MEDS ORDERED: PNEUMOCOCCAL VACCINE POLYVALENT 0.5 ML VIAL [PPSV23] IM ONE (01:30)
[2020-04-06 09:40] VITALS: BP 114/72
[2020-04-06] MEDS ORDERED: DEXTROSE 50%-WATER 25 GM/50 ML SYRINGE IVP PRN (11:45)
[2020-04-06 16:00] VITALS: BP 131/84
[2020-04-06] MEDS: MetFORMIN HCL 500 MG TABLET PO SCH (16:17)
[2020-04-06] MEDS: OLANZapine 5 MG RAPDIS TABLET PO PRN (16:19)
[2020-04-06 16:32] LABS: GLUCOMETER DEV NAME(LOC) 3E.I 2; GLUCOSE,POINT OF CARE 139 MG/DL (70-110)
[2020-04-06] MEDS ORDERED: ChlordiazePOXIDE HCL 25 MG CAPSULE PO PRN (18:30)
[2020-04-06] MEDS: GABAPENTIN 300 MG CAPSULE PO SCH (20:19)
[2020-04-07 00:30] VITALS: BP 123/86
[2020-04-07] MEDS: OLANZapine 5 MG RAPDIS TABLET PO PRN (00:31)
[2020-04-07 05:37] LABS: GLUCOMETER DEV NAME(LOC) 3E.I 2; GLUCOSE,POINT OF CARE 114 MG/DL (70-110)
[2020-04-07] MEDS: MetFORMIN HCL 500 MG TABLET PO SCH ×2 (06:34→16:39)
[2020-04-07] MEDS: PARoxetine HCL 10 MG TABLET PO SCH (11:15)
[2020-04-07] MEDS: GABAPENTIN 300 MG CAPSULE PO SCH ×4 (11:16→20:47)
[2020-04-07] MEDS: THIAMINE 100 MG TABLET PO SCH (11:16)
[2020-04-07] MEDS: FOLIC ACID 1 MG TABLET PO SCH (11:16)
[2020-04-07 16:00] VITALS: BP 121/76
[2020-04-07 17:07] LABS: GLUCOMETER DEV NAME(LOC) 3E.I 2; GLUCOSE,POINT OF CARE 100 MG/DL (70-110)
[2020-04-07] MEDS ORDERED: QUEtiapine FUMARATE 25 MG TABLET PO PRN (17:45)
[2020-04-07] MEDS ORDERED: DIAZEPAM 10 MG TABLET PO PRN (17:45)
[2020-04-07 18:00] VITALS: BP 105/60
[2020-04-07] MEDS ORDERED: LURASIDONE HCL 20 MG TABLET PO PRN (18:00)
[2020-04-07] MEDS ORDERED: DIAZEPAM 10 MG TABLET PO ONE (18:45)
[2020-04-07 19:00] VITALS: BP 107/50
[2020-04-07 20:00] VITALS: BP 100/58
[2020-04-07] MEDS: TOPIRAMATE 25 MG TABLET PO SCH (20:46)
[2020-04-07] MEDS ORDERED: QUEtiapine FUMARATE 100 MG TABLET PO SCH (21:00)
[2020-04-08] VITALS (8 sets, daily range): BP systolic 100–130; BP diastolic 60–82
[2020-04-08 05:49] LABS: GLUCOMETER DEV NAME(LOC) 3E.I 2; GLUCOSE,POINT OF CARE 126 MG/DL (70-110)
[2020-04-08] MEDS: LURASIDONE HCL 20 MG TABLET PO SCH (06:47)
[2020-04-08] MEDS: MetFORMIN HCL 500 MG TABLET PO SCH ×2 (06:47→17:45)
[2020-04-08] MEDS ORDERED: DIAZEPAM 10 MG TABLET PO PRN (07:00)
[2020-04-08] MEDS: THIAMINE 100 MG TABLET PO SCH (09:04)
[2020-04-08] MEDS: PARoxetine HCL 10 MG TABLET PO SCH (09:05)
[2020-04-08] MEDS: NALTREXONE HCL 50 MG TABLET PO SCH (09:05)
[2020-04-08] MEDS: DIAZEPAM 10 MG TABLET PO SCH ×4 (09:05→21:00)
[2020-04-08] MEDS: FOLIC ACID 1 MG TABLET PO SCH (09:05)
[2020-04-08] MEDS: ACAMPROSATE CALCIUM 333 MG DR TABLET PO SCH ×3 (09:05→17:45)
[2020-04-08] MEDS: GABAPENTIN 300 MG CAPSULE PO SCH ×4 (09:05→21:09)
[2020-04-08] MEDS: OMEGA-3/DHA/EPA/FISH OIL 1,000 MG CAPSULE PO SCH (09:05)
[2020-04-08] MEDS: TOPIRAMATE 25 MG TABLET PO SCH ×4 (09:05→21:09)
[2020-04-08] MEDS ORDERED: ACAM333T7 PO (13:25)
[2020-04-08] MEDS ORDERED: LURA20TA PO (13:25)
[2020-04-08] MEDS ORDERED: TOPI25 PO (13:25)
[2020-04-08] MEDS ORDERED: GABA-1181 PO (13:25)
[2020-04-08] MEDS ORDERED: OMEG-135 PO (13:25)
[2020-04-08] MEDS ORDERED: NALT50TA PO (13:25)
[2020-04-08] MEDS: INSULIN LISPRO 100 UNITS/ML SQ PRN (17:47)
[2020-04-08 18:14] LABS: GLUCOMETER DEV NAME(LOC) 3E.I 2; GLUCOSE,POINT OF CARE 141 MG/DL (70-110)
[2020-04-09 02:16] VITALS: BP 125/78
[2020-04-09 05:33] LABS: GLUCOMETER DEV NAME(LOC) 3E.I 2; GLUCOSE,POINT OF CARE 105 MG/DL (70-110)
[2020-04-09] MEDS: INSULIN LISPRO 100 UNITS/ML SQ PRN (06:51)
[2020-04-09] MEDS: LURASIDONE HCL 20 MG TABLET PO SCH (06:55)
[2020-04-09] MEDS: MetFORMIN HCL 500 MG TABLET PO SCH ×2 (06:55→17:29)
[2020-04-09 08:00] VITALS: BP 130/92
[2020-04-09] MEDS: OMEGA-3/DHA/EPA/FISH OIL 1,000 MG CAPSULE PO SCH (08:04)
[2020-04-09] MEDS: DIAZEPAM 10 MG TABLET PO SCH ×4 (08:04→20:58)
[2020-04-09] MEDS: FOLIC ACID 1 MG TABLET PO SCH (08:04)
[2020-04-09] MEDS: NALTREXONE HCL 50 MG TABLET PO SCH (08:04)
[2020-04-09] MEDS: ACAMPROSATE CALCIUM 333 MG DR TABLET PO SCH ×3 (08:05→17:28)
[2020-04-09] MEDS: GABAPENTIN 300 MG CAPSULE PO SCH ×4 (08:05→20:58)
[2020-04-09] MEDS: THIAMINE 100 MG TABLET PO SCH (08:05)
[2020-04-09] MEDS: PARoxetine HCL 10 MG TABLET PO SCH (08:05)
[2020-04-09] MEDS: TOPIRAMATE 25 MG TABLET PO SCH ×4 (08:05→20:58)
[2020-04-09 09:28] VITALS: BP 130/92
[2020-04-09 16:00] VITALS: BP 125/81
[2020-04-09 17:47] LABS: GLUCOMETER DEV NAME(LOC) 3E.I 2; GLUCOSE,POINT OF CARE 106 MG/DL (70-110)
[2020-04-10 05:04] VITALS: BP 108/72
[2020-04-10 05:34] LABS: GLUCOMETER DEV NAME(LOC) 3E.I 2; GLUCOSE,POINT OF CARE 163 MG/DL (70-110)
[2020-04-10] MEDS: LURASIDONE HCL 20 MG TABLET PO SCH (06:40)
[2020-04-10] MEDS: MetFORMIN HCL 500 MG TABLET PO SCH (06:40)
[2020-04-10] MEDS: INSULIN LISPRO 100 UNITS/ML SQ PRN (06:41)
[2020-04-10] MEDS ORDERED: DIAZEPAM 5 MG TABLET PO PRN (07:00)
[2020-04-10 08:00] VITALS: BP 126/95
[2020-04-10] MEDS: GABAPENTIN 300 MG CAPSULE PO SCH (08:04)
[2020-04-10] MEDS: NALTREXONE HCL 50 MG TABLET PO SCH (08:04)
[2020-04-10] MEDS: THIAMINE 100 MG TABLET PO SCH (08:04)
[2020-04-10] MEDS: OMEGA-3/DHA/EPA/FISH OIL 1,000 MG CAPSULE PO SCH (08:04)
[2020-04-10] MEDS: FOLIC ACID 1 MG TABLET PO SCH (08:04)
[2020-04-10] MEDS: TOPIRAMATE 25 MG TABLET PO SCH (08:04)
[2020-04-10] MEDS: ACAMPROSATE CALCIUM 333 MG DR TABLET PO SCH (08:05)
[2020-04-10] MEDS: PARoxetine HCL 10 MG TABLET PO SCH (08:07)
[2020-04-10] MEDS ORDERED: DIAZEPAM 5 MG TABLET PO SCH (09:00)
[2020-04-10 09:47] VITALS: BP 126/95
[2020-04-11] MEDS ORDERED: DIAZEPAM 5 MG TABLET PO PRN (07:00)
== END 2020-04-10 11:20 | disposition home or self-care (01) | DRG 751 ==
LOC: EMS 16:10 → 3EI 19:38 → EMS 04-06 00:02
PROVIDERS: ADMIT Psychiatry & Neurology Psychiatry; ATTEND Psychiatry & Neurology Psychiatry
DX: F33.2 Major depressive disorder, recurrent severe without psychotic features (principal); R45.851 Suicidal ideations; Z59.0 Homelessness; Z91.14 Patient's other noncompliance with medication regimen; E11.9 Type 2 diabetes mellitus without complications; J44.9 Chronic obstructive pulmonary disease, unspecified; D64.9 Anemia, unspecified; F12.90 Cannabis use, unspecified, uncomplicated; Z79.899 Other long term (current) drug therapy; Z88.8 Allergy status to other drugs, medicaments and biological substances; F10.20 Alcohol dependence, uncomplicated; Z86.73 Personal history of transient ischemic attack (TIA), and cerebral infarction without residual deficits; F40.10 Social phobia, unspecified; Y90.9 Presence of alcohol in blood, level not specified; Z20.828 Contact with and (suspected) exposure to other viral communicable diseases; Z28.21 Immunization not carried out because of patient refusal
CPT/HCPCS: 87426; G0480

== ENCOUNTER 2021-06-06 12:12 | Emergency (ER) | payer MEDICAID ==
[~2021-06-06] VITALS: Ht 165.1 cm; Wt 77.3 kg
[~2021-06-06 12:12] MED LIST changes: +LURA20TA PO; +METF-1211 PO; -OLAN10TA22 PO; +OMEG-135 PO; -PARO10TA71 PO; +TOPI25 PO
[2021-06-06] MEDS: DiphenhydrAMINE HCL 25 MG CAPSULE PO ONE (14:07)
[2021-06-06 14:24] LABS: BASOPHILS % (AUTO) 0.3 % (0.0-2.0); EOSINOPHILS % (AUTO) 0.6 % (1.0-6.0); HEMATOCRIT 46.7 % (41-53); LYMPHOCYTES # (AUTO) 0.9 K/uL (1.0-4.8); LYMPHOCYTES % (AUTO) 12.1 % (22.0-44.0); MEAN CORPUSCULAR HGB CONC 34.3 G/dL (31.0-37.0); MEAN CORPUSCULAR VOLUME 93 fL (80-100); MONOCYTES # (AUTO) 0.5 K/uL (0.1-1.0); MONOCYTES % (AUTO) 6.1 % (2.0-9.0); NEUTROPHILS # (AUTO) 6.2 K/uL (1.8-7.7); NEUTROPHILS % (AUTO) 80.9 % (40.0-70.0); PLATELET COUNT (AUTO) 291 K/uL (150-450); RED BLOOD CELL COUNT(AUTO) 5.01 MIL/uL (4.50-5.90)
[2021-06-06 14:37] LABS: ANION GAP 13 mmol/L (8-16); CARBON DIOXIDE 24 mmol/L (22-29); CHLORIDE 99 mmol/L (98-107); CREATININE 0.66 mg/dL (0.60-1.30); GLOMERULAR FILTR. RATE CALC > 60 mL/min (>60); GLUCOSE,RANDOM 186 mg/dL (70-110); POTASSIUM 3.6 mmol/L (3.5-5.1); SODIUM SERUM 136 mmol/L (136-145); UREA NITROGEN, BLOOD 8 mg/dL (7-18)
[2021-06-06 14:42] LABS: ALANINE AMINOTRANSFERASE 55 U/L (12-78); ALBUMIN 3.7 g/dL (3.4-5.0); ALKALINE PHOSPHATASE 162 U/L (46-116); ASPARTATE AMINOTRANSFERASE 57 U/L (15-37); BILIRUBIN,TOTAL 1.7 mg/dL (0.1-1.0); TOTAL PROTEIN, SERUM 7.6 g/dL (6.4-8.2)
[2021-06-06 16:15] VITALS: BP 153/92
== END 2021-06-06 16:17 | disposition home or self-care (01) ==
LOC: EMS 12:37
DX: K70.30 Alcoholic cirrhosis of liver without ascites (principal); G47.00 Insomnia, unspecified; F41.9 Anxiety disorder, unspecified; F31.9 Bipolar disorder, unspecified; E11.9 Type 2 diabetes mellitus without complications; F12.90 Cannabis use, unspecified, uncomplicated; Z88.8 Allergy status to other drugs, medicaments and biological substances; Z79.84 Long term (current) use of oral hypoglycemic drugs; Z79.899 Other long term (current) drug therapy
CPT/HCPCS: 36415; 80053; 84484; 85025; 99283; G0480

== ENCOUNTER 2021-06-22 17:05 | Emergency (ER) | payer MEDICAID, OTHER ==
[~2021-06-22] VITALS: Ht 165.1 cm; Wt 79.5 kg
[2021-06-22 20:39] LABS: BASOPHILS % (AUTO) 0.9 % (0.0-2.0); EOSINOPHILS % (AUTO) 1.2 % (1.0-6.0); HEMATOCRIT 49.5 % (41-53); HEMOGLOBIN 16.6 g/dL (13.5-17.5); LYMPHOCYTES # (AUTO) 1.9 K/uL (1.0-4.8); LYMPHOCYTES % (AUTO) 31.5 % (22.0-44.0); MEAN CORPUSCULAR HEMOGLOBIN 31.5 pg (26.0-34.0); MEAN CORPUSCULAR HGB CONC 33.6 G/dL (31.0-37.0); MEAN CORPUSCULAR VOLUME 94 fL (80-100); MONOCYTES # (AUTO) 0.6 K/uL (0.1-1.0); MONOCYTES % (AUTO) 9.4 % (2.0-9.0); NEUTROPHILS # (AUTO) 3.5 K/uL (1.8-7.7); PLATELET COUNT (AUTO) 561 K/uL (150-450); RED BLOOD CELL COUNT(AUTO) 5.28 MIL/uL (4.50-5.90); RED CELL DISTRIBUTION WIDTH 14.7 % (11.5-14.5)
[2021-06-22 20:44] LABS: ANION GAP 17 mmol/L (8-16); CALCIUM, TOTAL 9.1 mg/dL (8.8-10.5); CARBON DIOXIDE 22 mmol/L (22-29); CHLORIDE 100 mmol/L (98-107); CREATININE 0.76 mg/dL (0.60-1.30); GLOMERULAR FILTR. RATE CALC > 60 mL/min (>60); GLUCOSE,RANDOM 116 mg/dL (70-110); POTASSIUM 3.6 mmol/L (3.5-5.1); SODIUM SERUM 139 mmol/L (136-145); UREA NITROGEN, BLOOD 6 mg/dL (7-18)
[2021-06-22 20:50] LABS: ALANINE AMINOTRANSFERASE 68 U/L (12-78); ALBUMIN 3.5 g/dL (3.4-5.0); ALKALINE PHOSPHATASE 156 U/L (46-116); ASPARTATE AMINOTRANSFERASE 64 U/L (15-37); BILIRUBIN,TOTAL 0.6 mg/dL (0.1-1.0); LIPASE 208 U/L (73-393); TOTAL PROTEIN, SERUM 8.4 g/dL (6.4-8.2)
[2021-06-22 21:03] LABS: COVID AG,FIA SOURCE NASOPHARYNGEAL
[2021-06-22] MEDS ORDERED: LORazepam 1 MG TABLET PO ONE (21:45)
[2021-06-22 21:58] VITALS: BP 141/86
== END 2021-06-22 22:09 | disposition home or self-care (01) ==
LOC: EMS 17:08
DX: R45.851 Suicidal ideations (principal); F10.129 Alcohol abuse with intoxication, unspecified; F32.9 Major depressive disorder, single episode, unspecified; R10.84 Generalized abdominal pain; R19.7 Diarrhea, unspecified; J44.9 Chronic obstructive pulmonary disease, unspecified; E11.9 Type 2 diabetes mellitus without complications; F12.90 Cannabis use, unspecified, uncomplicated; Z20.822 Contact with and (suspected) exposure to COVID-19; Z79.84 Long term (current) use of oral hypoglycemic drugs; Z91.011 Allergy to milk products; Y90.6 Blood alcohol level of 120-199 mg/100 ml
CPT/HCPCS: 36415; 80053; 83690; 85025; 87426; 99284; G0480

== ENCOUNTER 2021-07-23 13:39 | Emergency (ER) | payer OTHER, MEDICAID ==
[~2021-07-23] VITALS: Ht 167.6 cm; Wt 7.9 kg
[~2021-07-23 13:39] MED LIST changes: +OMEG-108 PO; -OMEG-135 PO
[2021-07-23 14:15] LABS: BASOPHILS % (AUTO) 0.5 % (0.0-2.0); EOSINOPHILS % (AUTO) 0.6 % (1.0-6.0); HEMATOCRIT 43.8 % (41-53); HEMOGLOBIN 14.9 g/dL (13.5-17.5); LYMPHOCYTES # (AUTO) 1.2 K/uL (1.0-4.8); LYMPHOCYTES % (AUTO) 17.9 % (22.0-44.0); MEAN CORPUSCULAR HEMOGLOBIN 32.2 pg (26.0-34.0); MEAN CORPUSCULAR HGB CONC 34.1 G/dL (31.0-37.0); MEAN CORPUSCULAR VOLUME 94 fL (80-100); MONOCYTES # (AUTO) 0.9 K/uL (0.1-1.0); NEUTROPHILS # (AUTO) 4.5 K/uL (1.8-7.7); PLATELET COUNT (AUTO) 260 K/uL (150-450); RED BLOOD CELL COUNT(AUTO) 4.64 MIL/uL (4.50-5.90); RED CELL DISTRIBUTION WIDTH 17.5 % (11.5-14.5)
[2021-07-23 14:28] LABS: ANION GAP 14 mmol/L (8-16); CALCIUM, TOTAL 9.3 mg/dL (8.8-10.5); CARBON DIOXIDE 21 mmol/L (22-29); CHLORIDE 101 mmol/L (98-107); CREATININE 0.65 mg/dL (0.60-1.30); GLOMERULAR FILTR. RATE CALC > 60 mL/min (>60); GLUCOSE,RANDOM 119 mg/dL (70-110); POTASSIUM 3.7 mmol/L (3.5-5.1); SODIUM SERUM 136 mmol/L (136-145); UREA NITROGEN, BLOOD 10 mg/dL (7-18)
[2021-07-23 14:41] LABS: ALANINE AMINOTRANSFERASE 63 U/L (12-78); ALBUMIN 3.9 g/dL (3.4-5.0); ALKALINE PHOSPHATASE 140 U/L (46-116); ASPARTATE AMINOTRANSFERASE 51 U/L (15-37); BILIRUBIN,TOTAL 1.3 mg/dL (0.1-1.0); LIPASE 162 U/L (73-393); TOTAL PROTEIN, SERUM 8.3 g/dL (6.4-8.2)
[2021-07-23 15:05] VITALS: BP 141/86
[2021-07-23 15:07] LABS: APPEARANCE,URINE CLEAR (CLEAR); BILIRUBIN,URINE NEGATIVE (NEGATIVE); GLUCOSE, URINE (UA) NEGATIVE (NEGATIVE); KETONES,URINE NEGATIVE (NEGATIVE); LEUKOCYTE ESTERASE ,URINE NEGATIVE (NEGATIVE); NITRATE,URINE NEGATIVE (NEGATIVE); OCCULT BLOOD,URINE NEGATIVE (NEGATIVE); PROTEIN,URINE NEGATIVE (NEGATIVE)
[2021-07-23] MEDS ORDERED: PB/HYOSCY/ATR/SCOP/LIDO/MAALOX 55 ML BOTTLE PO ONE (16:15)
== END 2021-07-23 17:08 | disposition home or self-care (01) ==
LOC: EMS 13:39
DX: K43.9 Ventral hernia without obstruction or gangrene (principal); F10.10 Alcohol abuse, uncomplicated; J44.9 Chronic obstructive pulmonary disease, unspecified; F32.9 Major depressive disorder, single episode, unspecified; E11.9 Type 2 diabetes mellitus without complications; F12.90 Cannabis use, unspecified, uncomplicated; Z79.84 Long term (current) use of oral hypoglycemic drugs; Z91.011 Allergy to milk products
CPT/HCPCS: 80053; 81003; 82962; 83690; 84484; 85025; 93005; 99284

== ENCOUNTER 2021-11-05 18:24 | Emergency (ER) | payer MEDICAID ==
[~2021-11-05] VITALS: Ht 165.1 cm; Wt 72.7 kg
[~2021-11-05 18:24] MED LIST changes: -NALT50TA PO
[2021-11-05 20:22] LABS: BASOPHILS % (AUTO) 0.4 % (0.0-2.0); EOSINOPHILS % (AUTO) 0.2 % (1.0-6.0); HEMATOCRIT 46.4 % (41-53); HEMOGLOBIN 15.8 g/dL (13.5-17.5); LYMPHOCYTES % (AUTO) 15.5 % (22.0-44.0); MEAN CORPUSCULAR HEMOGLOBIN 32.6 pg (26.0-34.0); MEAN CORPUSCULAR VOLUME 96 fL (80-100); MONOCYTES # (AUTO) 0.4 K/uL (0.1-1.0); MONOCYTES % (AUTO) 6.4 % (2.0-9.0); NEUTROPHILS # (AUTO) 5.2 K/uL (1.8-7.7); NEUTROPHILS % (AUTO) 77.5 % (40.0-70.0); PLATELET COUNT (AUTO) 289 K/uL (150-450); RED BLOOD CELL COUNT(AUTO) 4.84 MIL/uL (4.50-5.90); RED CELL DISTRIBUTION WIDTH 14.9 % (11.5-14.5)
[2021-11-05 20:23] LABS: APPEARANCE,URINE CLEAR (CLEAR); BILIRUBIN,URINE NEGATIVE (NEGATIVE); GLUCOSE, URINE (UA) NEGATIVE (NEGATIVE); LEUKOCYTE ESTERASE ,URINE NEGATIVE (NEGATIVE); NITRATE,URINE NEGATIVE (NEGATIVE); OCCULT BLOOD,URINE NEGATIVE (NEGATIVE); PROTEIN,URINE TRACE mg/dL (NEGATIVE); SPECIFIC GRAVITIY, URINE 1.009 (1.003-1.030); UROBILINOGEN,URINE <=1.0 mg/dL (<=1.0)
[2021-11-05 20:26] LABS: ANION GAP 17 mmol/L (8-16); CALCIUM, TOTAL 8.1 mg/dL (8.8-10.5); CARBON DIOXIDE 21 mmol/L (22-29); CHLORIDE 94 mmol/L (98-107); CREATININE 0.63 mg/dL (0.60-1.30); GLOMERULAR FILTR. RATE CALC > 60 mL/min (>60); GLUCOSE,RANDOM 156 mg/dL (70-110); SODIUM SERUM 132 mmol/L (136-145); UREA NITROGEN, BLOOD 4 mg/dL (7-18)
[2021-11-05 20:32] LABS: ALANINE AMINOTRANSFERASE 55 U/L (12-78); ALBUMIN 3.3 g/dL (3.4-5.0); ALKALINE PHOSPHATASE 170 U/L (46-116); ASPARTATE AMINOTRANSFERASE 46 U/L (15-37); TOTAL PROTEIN, SERUM 7.1 g/dL (6.4-8.2)
[2021-11-05 20:51] LABS: B-TYPE NATRIURETIC PEPTIDE 140 pg/mL (0-100)
[2021-11-05 21:13] LABS: PROTHROMBIN TIME 11.1 SEC (9.4-11.6)
[2021-11-05] MEDS ORDERED: MELATONIN 5 MG TABLET PO ONE (21:15)
[2021-11-05] MEDS ORDERED: POTASSIUM CHLORIDE 20 MEQ ER TABLET PO ONE (21:15)
[2021-11-05] MEDS ORDERED: ONDANSETRON HCL 4 MG/2 ML VIAL IVP ONE (22:00)
[2021-11-05] MEDS ORDERED: BENZONATATE 100 MG CAPSULE PO ONE (22:00)
[2021-11-05] MEDS ORDERED: SODIUM CHLORIDE 0.9% 1,000 ML IV ONE (23:45)
[2021-11-05] MEDS ORDERED: METOCLOPRAMIDE HCL 5 MG/ML 2 ML VIAL IVP ONE (23:45)
[2021-11-06 04:38] VITALS: BP 137/81
== END 2021-11-06 06:30 | disposition home or self-care (01) ==
LOC: EMS 18:24
DX: R07.89 Other chest pain (principal); E11.9 Type 2 diabetes mellitus without complications; F31.9 Bipolar disorder, unspecified; J44.9 Chronic obstructive pulmonary disease, unspecified
CPT/HCPCS: 36415; 71045; 80053; 81003; 83880; 84484; 85025; 85610; 85730; 93005; 96361; 96374; 96375; 99285; G0480; J2405; J2765; J7030; Q9967